=== PATIENT | female | born 1930 | race Caucasian/White ===

== ENCOUNTER 2018-04-28 09:48 | Inpatient (IN) ==
[2018-04-28] MEDS ORDERED: Morphine Inj 4 MG/ML Vial IV.PUSH ONE (10:12)
[2018-04-28 10:52] LABS: Baso # (Auto) 0.1 th/mm3 (0.0-0.2); Baso % (Auto) 0.5 % (0.0-2.0); Eos # (Auto) 0.1 th/mm3 (0.0-0.4); Eos % (Auto) 0.7 % (0.0-4.0); Hematocrit 34.2 % (35.0-46.0); Hemoglobin 11.1 gm/dL (11.6-15.3); Lymph # (Auto) 0.9 th/mm3 (1.0-4.8); Lymph % (Auto) 7.4 % (9.0-44.0); Mean Corpuscular HGB Conc 32.4 % (32.0-36.0); Mean Corpuscular Volume 83.3 fL (80.0-100.0); Mean Platelet Volume 6.8 fL (7.0-11.0); Mono # (Auto) 0.7 th/mm3 (0.0-0.9); Mono % (Auto) 5.8 % (0.0-8.0); Neut # (Auto) 10.9 th/mm3 (1.8-7.7); Neut % (Auto) 85.6 % (16.0-70.0); Platelet Count 223 th/mm3 (150-450); Red Blood Count 4.11 mil/mm3 (4.00-5.30); Red Cell Distribution Width 16.2 % (11.6-17.2); White Blood Count 12.7 th/mm3 (4.0-11.0)
[2018-04-28 11:05] LABS: Activated Partial Thrombo Time 22.4 sec (24.3-30.1); Prothrombin Time 9.9 sec (9.8-11.6)
[2018-04-28 11:11] LABS: Calcium 8.7 mg/dL (8.5-10.1); Carbon Dioxide 30.2 meq/L (21.0-32.0); Potassium 4.3 meq/L (3.5-5.1)
[2018-04-28 11:26] LABS: Baso # (Auto) 0.1 th/mm3 (0.0-0.2); Baso % (Auto) 0.7 % (0.0-2.0); Eos # (Auto) 0.1 th/mm3 (0.0-0.4); Eos % (Auto) 0.6 % (0.0-4.0); Hemoglobin 11.1 gm/dL (11.6-15.3); Lymph % (Auto) 7.8 % (9.0-44.0); Mean Corpuscular HGB Conc 32.8 % (32.0-36.0); Mean Corpuscular Hemoglobin 27.4 pg (27.0-34.0); Mean Corpuscular Volume 83.7 fL (80.0-100.0); Mono # (Auto) 0.7 th/mm3 (0.0-0.9); Mono % (Auto) 5.4 % (0.0-8.0); Neut # (Auto) 10.6 th/mm3 (1.8-7.7); Neut % (Auto) 85.5 % (16.0-70.0); Platelet Count 210 th/mm3 (150-450); Red Blood Count 4.07 mil/mm3 (4.00-5.30); Red Cell Distribution Width 15.9 % (11.6-17.2); White Blood Count 12.4 th/mm3 (4.0-11.0)
--- NOTE | 2018-04-28 11:47 | XR ---
EXAM DATE: 04/28/2018 11:44 AM EDT AGE/SEX: 87 years / Female INDICATIONS: Fell today at home CLINICAL DATA: This is the patient's initial encounter. Patient reports that signs and symptoms have been present for 1 day and indicates a pain score of 7/10. MEDICAL/SURGICAL HISTORY: . dementia . hysterectomy and prolapse bladder surgery COMPARISON: No prior exams available for comparison. FINDINGS: A single AP view of the chest demonstrates the lungs to be symmetrically aerated without evidence of mass, infiltrate or effusion. There is some platelike atelectasis in the left lung base. The cardiome diastinal contours are unremarkable. Osseous structures are intact. CONCLUSION: 1. Platelike atelectasis in left lung base. 2. Otherwise, no focal or acute intrathoracic disease. Electronically signed by: Hitesh Lopez MD 04/28/2018 11:46 AM EDT
[2018-04-28 11:49] LABS: Bilirubin,Urine Negative (Negative); Clarity,Urine Clear (Clear); Color,Urine Yellow (Yellw/Straw); Glucose,Urine (UA) Negative (Negative); Leukocyte Esterase,Urine Negative (Negative); Mucus,Urine Few /lpf (Occasional); Nitrite,Urine Negative (Negative); Squamous Epithelial Cell,Urine <1 /hpf (0-5)
--- NOTE | 2018-04-28 11:59 | XR ---
EXAM DATE: 04/28/2018 11:49 AM EDT AGE/SEX: 87 years / Female INDICATIONS: Fell today at home CLINICAL DATA: This is the patient's initial encounter. Patient reports that signs and symptoms have been present for 1 day and indicates a pain score of 1/10. MEDICAL/SURGICAL HISTORY: . dementia . hysterectomy and prolapse bladder surgery COMPARISON: No prior exams available for comparison. FINDINGS: Bony structures are intact and in normal alignment. Osseous density is normal. Soft tissues are unre markable. No radiopaque foreign bodies seen. CONCLUSION: No acute fracture or joint dislocation. Electronically signed by: Hitesh Lopez MD 04/28/2018 11:58 AM EDT
--- NOTE | 2018-04-28 12:00 | XR ---
EXAM DATE: 04/28/2018 11:47 AM EDT AGE/SEX: 87 years / Female INDICATIONS: Fell today at home CLINICAL DATA: This is the patient's initial encounter. Patient reports that signs and symptoms have been present for 1 day and indicates a pain score of 9/10. MEDICAL/SURGICAL HISTORY: . dementia . hysterectomy and prolapse bladder surgery COMPARISON: No prior exams available for comparison. FINDINGS: There is an angulated comminuted fracture through the trochanteric region of the proximal left femur. The femoral head remains within the acetabulum. The bony structures of the pelvis are grossly intact . CONCLUSION: Angulated comminuted fracture through the trochanteric region of the proximal left femur. Electronically signed by: Hitesh Lopez MD 04/28/2018 11:59 AM EDT
--- NOTE | 2018-04-28 12:47 | ED ---
HPI General Chief Complaint: Fall Stated Complaint: Fall Time Seen by Provider: 04/28/18 09:59 Source: patient and EMS Mode of arrival: ambulatory Limitations: no limitations History of Present Illness HPI Narrative: The patient is an 87-year-old female with history of diabetes type 2 and mild dementia presenting after mechanical fall today resulting in 2 left hip injury. The patient has been unable to tolerate any weight on the affected leg. Dr. Ferrera is her orthopedic surgeon as per family. MD complaint: fall Onset (ago): minute(s) (30) Fall from: standing Fall witnessed: yes, by family Place fall occurred: home Loss of consciousness: none Symptoms prior to fall: none Context: tripped/slipped Location of injury: other Related Data Home Medications Medication Instructions Recorded Confirmed L. gasseri-B. bifidum-B longum 1 cap PO DAILY 04/28/18 04/28/18 [[employer]Watch] acetaminophen [Tylenol Arthritis 650 mg PO BID 04/28/18 04/28/18 Pain] aspirin [Lima Chewable Aspirin] 81 mg PO 3XW 04/28/18 04/28/18 cholecalciferol (vitamin D3) 1,000 unit PO DAILY 04/28/18 04/28/18 [Vitamin D3] cyanocobalamin (vitamin B-12) 1,000 mcg PO 2XWEEK 04/28/18 04/28/18 [Vitamin B-12] donepezil 5 mg PO DAILY 04/28/18 04/28/18 latanoprost 1 drp EACH EYE HS 04/28/18 04/28/18 losartan 25 mg PO DAILY 04/28/18 04/28/18 memantine 10 mg PO BID 04/28/18 04/28/18 metformin 750 mg PO DAILY 04/28/18 04/28/18 ynclboic-nzsz-CI-calcium-mins 1 tab PO DAILY 04/28/18 04/28/18 [Women's One Daily] simvastatin [Zocor] 40 mg PO DAILY 04/28/18 04/28/18 Allergies Allergy/AdvReac Type Severity Reaction Status Date / Time No Known Allergies Allergy Verified 04/28/18 10:12 Review of Systems ROS: all other systems reviewed are negative [facility] Medical History Medical History Cataract (Acute) Dementia (Acute) Diabetes (Acute) H/O: hysterectomy (Acute) High cholesterol (Acute) Surgical History Surgical History History of bladder surgery (Acute) Family History Family History Other Hypertension Social History Social History Substance History: No History of Abuse Second Hand Smoke Exposure: No Smoking Status: Never smoker How Often Do You Have a Drink Containing Alcohol: Never Recent Travel in [facility] within the Last 8 Weeks: No Recent Out of Country Travel within the Last 8 Weeks: No Immunization History Tetanus Immunization: Unsure Hx Influenza Vaccine This Season: Yes Exam Narrative Exam Narrative: GENERAL: Alert and oriented in no distress SKIN: Focused skin assessment warm/dry. HEAD: Atraumatic. Normocephalic. EYES: Pupils equal and round. No scleral icterus. No injection or drainage. ENT: No nasal bleeding or discharge. Mucous membranes pink and moist. NECK: Trachea midline. No JVD. CARDIOVASCULAR: Regular rate and rhythm. No murmur appreciated. RESPIRATORY: No accessory muscle use. Clear to auscultation. Breath sounds equal bilaterally. GASTROINTESTINAL: Abdomen soft, non-tender, nondistended. Hepatic and splenic margins not palpable. MUSCULOSKELETAL: Left left lower extremity externally rotated and shortened comparison to the right. Tenderness over the left hip area. Distal pulses intact. Sensation intact. Left upper extremity with skin avulsion. NEUROLOGICAL: Awake and alert. No obvious cranial nerve deficits. Motor grossly within normal limits. Normal speech. PSYCHIATRIC: Appropriate mood and affect; insight and judgment normal. Course Hospital Course: Analgesia was provided. Also was consulted and saw the patient in the ED. She is to be scheduled for the OR later tonight or tomorrow based on opening. Neurovascularly intact. Reevaluation(s) Reevaluation #1: Patient in no distress. We will give narcotics. Neurovascularly intact. Also was consulted. Time: 16:27 Initial Documented Vital Signs Temperature 98 F 04/28/18 10:00 Pulse Rate 73 04/28/18 10:00 Respiratory Rate 18 04/28/18 10:00 Blood Pressure 132/69 04/28/18 10:00 Pulse Oximetry 98 09/04/18 10:00 Last Documented Vital Signs Temperature 98.9 F 04/28/18 16:00 Pulse Rate 69 04/28/18 16:00 Respiratory Rate 18 04/28/18 16:00 Blood Pressure 131/63 04/28/18 16:00 Pulse Oximetry 94 L 04/28/18 16:00 Medical Decision Making MDM Narrative Medical decision making narrative: Patient with a mechanical fall resulting to a left comminuted intertrochanteric fracture of the left femur. Also consulted will take the patient to the OR. Was a mechanical fall. There was no head injury or LOC. She is not on blood thinners. Medical Screen Exam Complete: Yes Emergency Medical Condition: Yes Medical Records Medical records reviewed: Yes I reviewed the patient's medical records. Lab Data Result diagrams: 04/28/18 11:12 04/28/18 10:35 Lab Results 04/28/18 04/28/18 04/28/18 Range/Units 10:35 10:35 10:35 WBC 12.7 H (4.0-11.0) th/mm3 RBC 4.11 (4.00-5.30) mil/mm3 Hgb 11.1 L (11.6-15.3) gm/dL Hct 34.2 L (35.0-46.0) % MCV 83.3 (80.0-100.0) fL MCH 27.0 (27.0-34.0) pg MCHC 32.4 (32.0-36.0) % RDW 16.2 (11.6-17.2) % Plt Count 223 (150-450) th/mm3 MPV 6.8 L (7.0-11.0) fL Neut % (Auto) 85.6 H (16.0-70.0) % Lymph % (Auto) 7.4 L (9.0-44.0) % [place] % (Auto) 5.8 (0.0-8.0) % Eos % (Auto) 0.7 (0.0-4.0) % Baso % (Auto) 0.5 (0.0-2.0) % Neut # (Auto) 10.9 H (1.8-7.7) th/mm3 Lymph # (Auto) 0.9 L (1.0-4.8) th/mm3 [place] # (Auto) 0.7 (0.0-0.9) th/mm3 Eos # (Auto) 0.1 (0.0-0.4) th/mm3 Baso # (Auto) 0.1 (0.0-0.2) th/mm3 WBC Differential . Differential Comment Auto diff final PT 9.9 (9.8-11.6) sec INR 1.0 Ratio APTT 22.4 L (24.3-30.1) sec Sodium 146 H (136-145) meq/L Potassium 4.3 (3.5-5.1) meq/L Chloride 108 H (98-107) meq/L Carbon Dioxide 30.2 (21.0-32.0) meq/L Anion Gap 8 (5-15) meq/L BUN 19 H (7-18) mg/dL Creatinine 0.95 (0.50-1.00) mg/dL Estimated GFR 55 L (>89) mL/min Random Glucose 123 H (74-106) mg/dL Calcium 8.7 (8.5-10.1) mg/dL Urine Color (Yellw/Straw) Urine Clarity (Clear) Urine pH (5.0-8.5) Ur Specific [place] (1.002-1.035) Urine Protein (Neg-Trace) mg/dL Urine Glucose (UA) (Negative) mg/dL Urine Ketones (Negative) mg/dL Urine Occult Blood (Negative) Urine Nitrate (Negative) Urine Bilirubin (Negative) Urine Urobilinogen (Less than 2) mg/dL Ur Leukocyte Esterase (Negative) Urine RBC (0-3) /hpf Urine WBC (0-5) /hpf Ur Squamous Epith Cells (0-5) /hpf Urine Mucus (Occasional) /lpf Micro UA Comment Ur Microscopic Review Urine Culture Comments 04/28/18 04/28/18 Range/Units 11:12 11:12 WBC 12.4 H (4.0-11.0) th/mm3 RBC 4.07 (4.00-5.30) mil/mm3 Hgb 11.1 L (11.6-15.3) gm/dL Hct 34.0 L (35.0-46.0) % MCV 83.7 (80.0-100.0) fL MCH 27.4 (27.0-34.0) pg MCHC 32.8 (32.0-36.0) % RDW 15.9 (11.6-17.2) % Plt Count 210 (150-450) th/mm3 MPV 7.0 (7.0-11.0) fL Neut % (Auto) 85.5 H (16.0-70.0) % Lymph % (Auto) 7.8 L (9.0-44.0) % [place] % (Auto) 5.4 (0.0-8.0) % Eos % (Auto) 0.6 (0.0-4.0) % Baso % (Auto) 0.7 (0.0-2.0) % Neut # (Auto) 10.6 H (1.8-7.7) th/mm3 Lymph # (Auto) 1.0 (1.0-4.8) th/mm3 [place] # (Auto) 0.7 (0.0-0.9) th/mm3 Eos # (Auto) 0.1 (0.0-0.4) th/mm3 Baso # (Auto) 0.1 (0.0-0.2) th/mm3 WBC Differential . Differential Comment Auto diff final PT (9.8-11.6) sec INR Ratio APTT (24.3-30.1) sec Sodium (136-145) meq/L Potassium (3.5-5.1) meq/L Chloride (98-107) meq/L Carbon Dioxide (21.0-32.0) meq/L Anion Gap (5-15) meq/L BUN (7-18) mg/dL Creatinine (0.50-1.00) mg/dL Estimated GFR (>89) mL/min Random Glucose (74-106) mg/dL Calcium (8.5-10.1) mg/dL Urine Color Yellow (Yellw/Straw) Urine Clarity Clear (Clear) Urine pH 6.0 (5.0-8.5) Ur Specific [place] 1.020 (1.002-1.035) Urine Protein Negative (Neg-Trace) mg/dL Urine Glucose (UA) Negative (Negative) mg/dL Urine Ketones Negative (Negative) mg/dL Urine Occult Blood Negative (Negative) Urine Nitrate Negative (Negative) Urine Bilirubin Negative (Negative) Urine Urobilinogen Less than 2 (Less than 2) mg/dL Ur Leukocyte Esterase Negative (Negative) Urine RBC 1 (0-3) /hpf Urine WBC 1 (0-5) /hpf Ur Squamous Epith Cells <1 (0-5) /hpf Urine Mucus Few H (Occasional) /lpf Micro UA Comment Culture not ind Ur Microscopic Review Not Reportable Urine Culture Comments Culture not ind Imaging Data Radiologist's impression: Chest X-Ray 04/28/18 10:14 CONCLUSION: 1. Platelike atelectasis in left lung base. 2. Otherwise, no focal or acute intrathoracic disease. Hip X-Ray 04/28/18 10:14 CONCLUSION: Angulated comminuted fracture through the trochanteric region of the proximal left femur. Humerus X-Ray 04/28/18 10:14 CONCLUSION: No acute fracture or joint dislocation. Discharge Plan Discharge Disposition Patient Disposition: 30 Still Patient Discharge Condition Condition: Stable Discharge Details Diagnosis: Closed intertrochanteric fracture of left femur Physicians Team ED Provider: Prudencio Hendricks Primary Care Provider: NON STAFF,PROVIDER Attending Provider: Rojelio Tucker Discharge Interventions Interventions: ED Discharge Assessment Last Done: 04/28/18 16:49 Vital Signs Last Done: 04/28/18 14:00 Status ED Status: Left Department Discharge Information Discharge Date/Time: 04/28/18 16:50
[2018-04-28] MEDS ORDERED: Sodium Chlor 0.9% Inj 40 ML, Bupivacaine Liposo PF 1.3% Inj 20 ML P-ARTICULR SCH ×2 (13:45)
[2018-04-28] MEDS ORDERED: Chlorhexidine 4% Topical 120 APPLIC/120 ML Bottle TOPICAL SCH (13:45)
--- NOTE | 2018-04-28 13:49 | P.CONOP ---
[facility] Orthopedics Consult Note - [facility] Consult date: 04/28/18 Consult reason: fracture Chief complaint: Fall Narrative: This 87-year-old woman has been known to me bilateral osteoarthritis in both knees. This morning, while going from one room to another, she reached out her doorknob and fell directly onto her left side. There was no loss of consciousness. This was on 1 level. She injured her left hip and her left upper arm. Her last oral intake was last night. [facility] - History History Provided By: Patient, Family Member, [employer] Machine Operator / EMT - Medical History Medical History: Medical History (Last Updated 04/28/18 @ 11:08 by [employer]) Cataract Dementia Diabetes H/O: hysterectomy High cholesterol - Surgical History Surgical History: Surgical History (Last Reviewed 04/28/18 @ 11:08 by [employer]) History of bladder surgery - Tobacco History Second Hand Smoke Exposure: No Tobacco Use In Past 30 Days: No Smoking Status: Never smoker - Alcohol History How Often Do You Have a Drink Containing Alcohol: Never - Substance Use History Substance History: No History of Abuse - Travel History Recent Travel in the [facility] Within the Last 8 Weeks: No Recent Travel Out of the Country Within the Last 8 Weeks: No - Immunization History Tetanus Immunization: Unsure Hx Influenza Vaccine This Season: Yes Medications and Allergies Active Medications: Active Medications Chlorhexidine Gluconate (Hibiclens 4% Topical) 1 applicatio TOPICAL ONCE SYDNI Stop: 05/02/18 13:44 Sodium Chloride 40 ml/ (Bupivacaine Liposome 20 ml) 0 ml P-ARTICULR ONCE SYDNI Cefazolin Sodium/Dextrose (Ancef 2 Gm Premix Inj) 2 gm in 50 mls @ 100 mls/hr IV.SIG FLOOR MOLDER SYDNI Stop: 05/02/18 13:59 Tranexamic Acid / Sodium (Chloride) 100 mls @ 200 mls/hr IV.SIG ONCE SYDNI Stop: 04/29/18 13:59 Allergies Allergy/AdvReac Type Severity Reaction Status Date / Time No Known Allergies Allergy Verified 04/28/18 10:12 Home Medications Medication Instructions Recorded Confirmed Type L. gasseri-B. bifidum-B longum 1 cap PO DAILY 04/28/18 04/28/18 History [[employer]] acetaminophen [Tylenol Arthritis 650 mg PO BID 04/28/18 04/28/18 History Pain] aspirin [Lima Chewable Aspirin] 81 mg PO 3XW 04/28/18 04/28/18 History cholecalciferol (vitamin D3) 1,000 unit PO DAILY 04/28/18 04/28/18 History [Vitamin D3] cyanocobalamin (vitamin B-12) 1,000 mcg PO 2XWEEK 04/28/18 04/28/18 History [Vitamin B-12] donepezil 5 mg PO DAILY 04/28/18 04/28/18 History latanoprost 1 drp EACH EYE HS 04/28/18 04/28/18 History losartan 25 mg PO DAILY 04/28/18 04/28/18 History memantine 10 mg PO BID 04/28/18 04/28/18 History metformin 750 mg PO DAILY 04/28/18 04/28/18 History efyegdnj-ekck-ZS-calcium-mins 1 tab PO DAILY 04/28/18 04/28/18 History [Women's One Daily] simvastatin [Zocor] 40 mg PO DAILY 04/28/18 04/28/18 History Exam Vital signs: Vital Signs 04/28/18 10:00 04/28/18 10:37 04/28/18 10:44 Temperature 98 F Pulse Rate 73 69 68 Respiratory Rate 18 18 18 Blood Pressure 132/69 147/65 H 142/56 H Pulse Oximetry 98 100 98 04/28/18 11:46 04/28/18 12:00 Temperature Pulse Rate 62 72 Respiratory Rate 18 18 Blood Pressure 114/57 L 114/56 L Pulse Oximetry 97 97 Intake & Output 04/27/18 04/28/18 04/28/18 18:59 06:59 18:59 Weight 61.235 kg Narrative: She is resting comfortably, supine in the stretcher/bed in the emergency department. There is complaint of pain in the left extremity. - Routine Extremities Exam Comments: The left lower extremity is shortened and externally rotated. There is tenderness of the left hip. The skin is intact. Dorsalis pedis and posterior tibial pulses are intact. Neurovascular status is intact. The left upper extremity has some tenderness but she moves it relatively well. There are multiple abrasions along the lateral aspect of the upper arm. Her neurovascular status is intact. Results - Labs Result Diagrams: 04/28/18 11:12 04/28/18 10:35 Labs: Laboratory Results - last 24 hr 04/28/18 04/28/18 04/28/18 10:35 10:35 10:35 WBC 12.7 H RBC 4.11 Hgb 11.1 L Hct 34.2 L MCV 83.3 MCH 27.0 MCHC 32.4 RDW 16.2 Plt Count 223 MPV 6.8 L Neut % (Auto) 85.6 H Lymph % (Auto) 7.4 L [place] % (Auto) 5.8 Eos % (Auto) 0.7 Baso % (Auto) 0.5 Neut # (Auto) 10.9 H Lymph # (Auto) 0.9 L [place] # (Auto) 0.7 Eos # (Auto) 0.1 Baso # (Auto) 0.1 WBC Differential . Differential Comment Auto diff final PT 9.9 INR 1.0 APTT 22.4 L Sodium 146 H Potassium 4.3 Chloride 108 H Carbon Dioxide 30.2 Anion Gap 8 BUN 19 H Creatinine 0.95 Estimated GFR 55 L Random Glucose 123 H Calcium 8.7 Urine Color Urine Clarity Urine pH Ur Specific [place] Urine Protein Urine Glucose (UA) Urine Ketones Urine Occult Blood Urine Nitrate Urine Bilirubin Urine Urobilinogen Ur Leukocyte Esterase Urine RBC Urine WBC Ur Squamous Epith Cells Urine Mucus Micro UA Comment Ur Microscopic Review Urine Culture Comments 04/28/18 04/28/18 11:12 11:12 WBC 12.4 H RBC 4.07 Hgb 11.1 L Hct 34.0 L MCV 83.7 MCH 27.4 MCHC 32.8 RDW 15.9 Plt Count 210 MPV 7.0 Neut % (Auto) 85.5 H Lymph % (Auto) 7.8 L [place] % (Auto) 5.4 Eos % (Auto) 0.6 Baso % (Auto) 0.7 Neut # (Auto) 10.6 H Lymph # (Auto) 1.0 [place] # (Auto) 0.7 Eos # (Auto) 0.1 Baso # (Auto) 0.1 WBC Differential . Differential Comment Auto diff final PT INR APTT Sodium Potassium Chloride Carbon Dioxide Anion Gap BUN Creatinine Estimated GFR Random Glucose Calcium Urine Color Yellow Urine Clarity Clear Urine pH 6.0 Ur Specific [place] 1.020 Urine Protein Negative Urine Glucose (UA) Negative Urine Ketones Negative Urine Occult Blood Negative Urine Nitrate Negative Urine Bilirubin Negative Urine Urobilinogen Less than 2 Ur Leukocyte Esterase Negative Urine RBC 1 Urine WBC 1 Ur Squamous Epith Cells <1 Urine Mucus Few H Micro UA Comment Culture not ind Ur Microscopic Review Not Reportable Urine Culture Comments Culture not ind - Diagnostic results Imaging: Impressions Chest X-Ray 04/28/18 10:14 CONCLUSION: 1. Platelike atelectasis in left lung base. 2. Otherwise, no focal or acute intrathoracic disease. Hip X-Ray 04/28/18 10:14 CONCLUSION: Angulated comminuted fracture through the trochanteric region of the proximal left femur. There is a 4 part comminuted intertrochanteric fracture of the left femur. There is not a great deal of arthritis. There is demineralization consistent with postmenopausal osteoporosis. Humerus X-Ray 04/28/18 10:14 CONCLUSION: No acute fracture or joint dislocation. Assessment and Plan - Ortho Post Op Day # 0 - Problem List (1) Closed intertrochanteric fracture of left femur Code(s): S72.142A - Displaced intertrochanteric fracture of left femur, initial encounter for closed fracture Status: Acute - Assessment and Plan I have seen the patient and discussed her condition with the patient and her family. She will need surgical stabilization of this fracture. I would recommend a trochanteric nail. With the operating room and time of this to be done. I have explained the procedure as well as possible complications, expected results and expected course of treatment. I have neither implied nor guaranteed results. I would anticipate that the fracture is going to take approximately 12 weeks to heal. She will be on limited weightbearing. I would recommend nursing home facility or other type of inpatient rehabilitation for post hospital care. Thank you for the consultation and I will continue to treat the patient with you.
[2018-04-28] MEDS ORDERED: ceFAZolin 2 GM/NS 100 ML IV IV.SIG SCH ×2 (14:00)
[2018-04-28] MEDS ORDERED: TRANEXAMIC ACID IV.SIG SCH (14:00)
[2018-04-28] MEDS ORDERED: SODIUM CHLOR 0.9% IV.SIG SCH (14:00)
[2018-04-28] MEDS ORDERED: ceFAZolin 2 GM Premix Inj 2 GM/50 ML PIGGYBACK IV.SIG SCH (14:00)
[2018-04-28] MEDS ORDERED: Acetaminophen 325 MG Tablet PO PRN (14:04)
[2018-04-28] MEDS ORDERED: Morphine Sulfate Inj 2 MG/ML Vial IV.PUSH PRN (14:08)
[2018-04-28] MEDS ORDERED: Dextrose 50% in Water 50 ML Vial IV.PUSH PRN (14:09)
[2018-04-28] MEDS: Sod Chloride 0.9% Inj 1,000 ML IV.CONT SCH (15:00)
[2018-04-28] MEDS: Insulin NovoLOG Aspart Correctional Sugar Inj SQ SCH ×2 (17:00→21:24)
--- NOTE | 2018-04-28 18:37 | P.HP ---
History of Present Illness Primary Care Physician: PROVIDER NON STAFF History of Present Illness: 87-year-old female with a history of moderate dementia, type 2 diabetes presents to the ER after she awoke today and while walking out of her bedroom tripped against the door and fell onto her left knee and hip. She had immediate pain and was unable to walk. 911 was called and ER workup revealed a comminuted left trochanteric femur fracture. ER physician consulted her orthopedist Dr. Ferrera. Surgery will proceed when OR space becomes available. Patient denies any loss of consciousness, unilateral weakness, syncope. Patient denies any recent dysuria, fevers, dyspnea, cough. Inpatient Certification: I certify that the inpatient services were ordered in accordance with Medicare regulations governing the order. This includes certification that hospital inpatient services are reasonable and necessary and in the case of services not specified as inpatient-only under 42 CFR 419.22(n), that they are appropriately provided as inpatient services in accordance to with the 2-midnight benchmark under 43 CFR 412.3(e) Estimated Total Length of Stay (Days): 5 Plans for Post Hospital Care: SNF Review of Systems All other systems reviewed negative except as stated in HPI PMFSH - History History Provided By: Patient, Family Member, Rug Shampooer / EMT - Medical History Medical History: Medical History (Last Updated 04/28/18 @ 11:08 by Lisa Finley) Cataract Dementia Diabetes H/O: hysterectomy High cholesterol - Surgical History Surgical History: Surgical History (Last Reviewed 04/28/18 @ 11:08 by Lisa Finley) History of bladder surgery - Family History Family History: Family History (Last Updated 04/28/18 @ 18:34 by Jose Eduardo Tucker MD) Other Hypertension - Tobacco History Second Hand Smoke Exposure: No Tobacco Use In Past 30 Days: No Smoking Status: Never smoker - Alcohol History How Often Do You Have a Drink Containing Alcohol: Never - Substance Use History Substance History: No History of Abuse - Travel History Recent Travel in the [place] Within the Last 8 Weeks: No Recent Travel Out of the Country Within the Last 8 Weeks: No - Immunization History Tetanus Immunization: Unsure Hx Influenza Vaccine This Season: Yes Medications and Allergies Active Medications: Active Medications Acetaminophen (Tylenol) 650 mg PO Q4H PRN PRN Reason: Temp > 100.4 Al Hydroxide/Mg Hydroxide (Milk Of Magnesia Liq) 30 ml PO Q12H PRN PRN Reason: Mild Constipation Chlorhexidine Gluconate (Hibiclens 4% Topical) 1 applicatio TOPICAL ONCE [facility] Stop: 05/02/18 13:44 Sodium Chloride 40 ml/ (Bupivacaine Liposome 20 ml) 0 ml P-ARTICULR ONCE [facility] Stop: 04/29/18 13:44 Dextrose (D50w Vial) 50 ml IV.PUSH UNSCH PRN PRN Reason: PER HYPOGLYCEMIA PROTOCOL Donepezil HCl (Aricept) 5 mg PO DAILY [facility] Glucagon (Glucagon Inj) 1 mg OTHER UNSCH PRN PRN Reason: for Hypoglycemia Protocol Tranexamic Acid 612.3 mg/ (Sodium Chloride) 106.123 mls @ 200 mls/hr IV.SIG ONCE [facility] Stop: 04/29/18 13:59 Cefazolin Sodium 2,000 mg/ (Sodium Chloride) 100 mls @ 200 mls/hr IV.SIG GUIDE [place] [facility] Stop: 05/01/18 13:59 Sodium Chloride (Ns Inj) 1,000 mls @ 84 mls/hr IV.CONT .[id number] [facility] Insulin Aspart (Novolog Insulin Correctional Sugar Inj) 0 unit SQ ACHS [facility]; Protocol Latanoprost (Xalatan 0.005% Opth Drops) 1 drop EACH EYE HS [facility] Memantine (Namenda) 10 mg PO BID [facility] Morphine Sulfate (Morphine Inj) 2 mg IV.PUSH Q4H PRN PRN Reason: PAIN SCALE 6 TO 10 Ondansetron HCl (Zofran Inj) 4 mg IV.PUSH Q6H PRN PRN Reason: NAUSEA OR VOMITING Allergies Allergy/AdvReac Type Severity Reaction Status Date / Time No Known Allergies Allergy Verified 04/28/18 10:12 Home Medications Medication Instructions Recorded Confirmed Type L. gasseri-B. bifidum-B longum 1 cap PO DAILY 04/28/18 04/28/18 History [[employer]] acetaminophen [Tylenol Arthritis 650 mg PO BID 04/28/18 04/28/18 History Pain] aspirin [Lima Chewable Aspirin] 81 mg PO 3XW 04/28/18 04/28/18 History cholecalciferol (vitamin D3) 1,000 unit PO DAILY 04/28/18 04/28/18 History [Vitamin D3] cyanocobalamin (vitamin B-12) 1,000 mcg PO 2XWEEK 04/28/18 04/28/18 History [Vitamin B-12] donepezil 5 mg PO DAILY 04/28/18 04/28/18 History latanoprost 1 drp EACH EYE HS 04/28/18 04/28/18 History losartan 25 mg PO DAILY 04/28/18 04/28/18 History memantine 10 mg PO BID 04/28/18 04/28/18 History metformin 750 mg PO DAILY 04/28/18 04/28/18 History ruhpsbqx-pehj-SP-calcium-mins 1 tab PO DAILY 04/28/18 04/28/18 History [Women's One Daily] simvastatin [Zocor] 40 mg PO DAILY 04/28/18 04/28/18 History Exam Vital signs: Vital Signs 04/28/18 10:00 04/28/18 10:37 04/28/18 10:44 Temperature 98 F Pulse Rate 73 69 68 Respiratory Rate 18 18 18 Blood Pressure 132/69 147/65 H 142/56 H Pulse Oximetry 98 100 98 04/28/18 11:46 04/28/18 12:00 04/28/18 13:00 Temperature Pulse Rate 62 72 72 Respiratory Rate 18 18 18 Blood Pressure 114/57 L 114/56 L 109/51 L Pulse Oximetry 97 97 98 04/28/18 14:00 04/28/18 16:00 Temperature 98.9 F Pulse Rate 73 69 Respiratory Rate 18 18 Blood Pressure 104/53 L 131/63 Pulse Oximetry 100 94 L Intake & Output 04/27/18 04/28/18 04/28/18 18:59 06:59 18:59 Weight 61.235 kg Narrative: GENERAL: AAOx3, no acute distress, adequate nutrition, moderate dementia SKIN: Warm and dry, no rashes. HEAD: Atraumatic. Normocephalic. EYES: Pupils equal, round, reactive to light. No scleral icterus. No injection or drainage. ENT: No nasal bleeding or discharge. Moist mucous membranes. Nonerythematous oropharynx. NECK: Trachea midline. No JVD. Thyroid size within normal limits. CARDIOVASCULAR: Regular rate and rhythm. 1/6 systolic ejection murmur. RESPIRATORY: Clear and equal to auscultation bilaterally. No crackles, no wheezes. No accessory muscle use. GASTROINTESTINAL: Abdomen soft, non-tender, nondistended, normal active bowel sounds. Hepatic and splenic margins not palpable. MUSCULOSKELETAL: Extremities without clubbing or cyanosis. Lateral rotation of left foot compared to right NEUROLOGICAL: Awake and alert. No obvious cranial nerve deficits. Motor grossly within normal limits. No focal deficits. Five out of 5 muscle strength in the arms and legs. Normal speech. PSYCHIATRIC: Appropriate mood and affect; insight and judgment normal. Results - Labs CBC & Chem 7: 04/28/18 11:12 04/28/18 10:35 Labs: Laboratory Results - last 24 hr 04/28/18 04/28/18 04/28/18 10:35 10:35 10:35 WBC 12.7 H RBC 4.11 Hgb 11.1 L Hct 34.2 L MCV 83.3 MCH 27.0 MCHC 32.4 RDW 16.2 Plt Count 223 MPV 6.8 L Neut % (Auto) 85.6 H Lymph % (Auto) 7.4 L [place] % (Auto) 5.8 Eos % (Auto) 0.7 Baso % (Auto) 0.5 Neut # (Auto) 10.9 H Lymph # (Auto) 0.9 L [place] # (Auto) 0.7 Eos # (Auto) 0.1 Baso # (Auto) 0.1 WBC Differential . Differential Comment Auto diff final PT 9.9 INR 1.0 APTT 22.4 L Sodium 146 H Potassium 4.3 Chloride 108 H Carbon Dioxide 30.2 Anion Gap 8 BUN 19 H Creatinine 0.95 Estimated GFR 55 L Random Glucose 123 H Calcium 8.7 Urine Color Urine Clarity Urine pH Ur Specific [place] Urine Protein Urine Glucose (UA) Urine Ketones Urine Occult Blood Urine Nitrate Urine Bilirubin Urine Urobilinogen Ur Leukocyte Esterase Urine RBC Urine WBC Ur Squamous Epith Cells Urine Mucus Micro UA Comment Ur Microscopic Review Urine Culture Comments 04/28/18 04/28/18 11:12 11:12 WBC 12.4 H RBC 4.07 Hgb 11.1 L Hct 34.0 L MCV 83.7 MCH 27.4 MCHC 32.8 RDW 15.9 Plt Count 210 MPV 7.0 Neut % (Auto) 85.5 H Lymph % (Auto) 7.8 L [place] % (Auto) 5.4 Eos % (Auto) 0.6 Baso % (Auto) 0.7 Neut # (Auto) 10.6 H Lymph # (Auto) 1.0 [place] # (Auto) 0.7 Eos # (Auto) 0.1 Baso # (Auto) 0.1 WBC Differential . Differential Comment Auto diff final PT INR APTT Sodium Potassium Chloride Carbon Dioxide Anion Gap BUN Creatinine Estimated GFR Random Glucose Calcium Urine Color Yellow Urine Clarity Clear Urine pH 6.0 Ur Specific [place] 1.020 Urine Protein Negative Urine Glucose (UA) Negative Urine Ketones Negative Urine Occult Blood Negative Urine Nitrate Negative Urine Bilirubin Negative Urine Urobilinogen Less than 2 Ur Leukocyte Esterase Negative Urine RBC 1 Urine WBC 1 Ur Squamous Epith Cells <1 Urine Mucus Few H Micro UA Comment Culture not ind Ur Microscopic Review Not Reportable Urine Culture Comments Culture not ind - Imaging Impressions Chest X-Ray 04/28/18 10:14 CONCLUSION: 1. Platelike atelectasis in left lung base. 2. Otherwise, no focal or acute intrathoracic disease. Hip X-Ray 04/28/18 10:14 CONCLUSION: Angulated comminuted fracture through the trochanteric region of the proximal left femur. Humerus X-Ray 04/28/18 10:14 CONCLUSION: No acute fracture or joint dislocation. Caprini VTE Risk Assessment Caprini VTE Risk Assessment: Moderate/High Risk (score >= 2) Caprini Risk Assessment Model: Point Value = 1 Point Value = 2 Point Value = 3 Point Value = 5 Age 41-60 Minor surgery BMI > 25 kg/m2 Swollen legs Varicose veins or History of unexplained or recurrent spontaneous Oral contraceptives or hormone replacement Sepsis (< 1 month) Serious lung disease, including pneumonia (< 1 month) Abnormal pulmonary function Acute myocardial infarction Congestive heart failure (< 1 month) History of inflammatory bowel disease Medical patient at bed rest Age 61-74 Arthroscopic surgery Major open surgery (> 45 min) Laparoscopic surgery (> 45 min) Malignancy Confined to bed (> 72 hours) Immobilizing plaster cast Central venous access Age >= 75 History of VTE Family history of VTE Factor V Leiden Prothrombin [id number] Lupus anticoagulant Anticardiolipin antibodies Elevated serum homocysteine Heparin-induced thrombocytopenia Other congenital or acquired thrombophilia Stroke (< 1 month) Elective arthroplasty Hip, pelvis, or leg fracture Acute spinal cord injury (< 1 month) Prophylaxis Regimen: Total Risk Factor Score Risk Level Prophylaxis Regimen 0-1 Low Early ambulation 2 Moderate Order ONE of the following: *Sequential Compression Device (SCD) *Heparin 5000 units SQ BID 3-4 Higher Order ONE of the following medications: *Heparin 5000 units SQ TID *Enoxaparin/Lovenox 40 mg SQ daily (WT < 150 kg, CrCl > 30 mL/min) *Enoxaparin/Lovenox 30 mg SQ daily (WT < 150 kg, CrCl > 10-29 mL/min) *Enoxaparin/Lovenox 30 mg SQ BID (WT < 150 kg, CrCl > 30 mL/min) AND/OR *Sequential Compression Device (SCD) 5 or more Highest Order ONE of the following medications: *Heparin 5000 units SQ TID (Preferred with Epidurals) *Enoxaparin/Lovenox 40 mg SQ daily (WT < 150 kg, CrCl > 30 mL/min) *Enoxaparin/Lovenox 30 mg SQ daily (WT < 150 kg, CrCl > 10-29 mL/min) *Enoxaparin/Lovenox 30 mg SQ BID (WT < 150 kg, CrCl > 30 mL/min) AND *Sequential Compression Device (SCD) Assessment and Plan - Plan Left hip fracture X-ray shows angled comminuted fracture through the region of the proximal left trochanteric femur Patient will be kept n.p.o. for surgery Pain is adequately controlled, continue morphine Appreciate timely consult by orthopedic surgery Type 2 diabetes ACHS Accu-Cheks with sliding scale coverage if needed Diabetic diet when p.o. resumed Moderate dementia Continue home Alzheimer's medications Watch for Superficial lacerations Patient has some skin tears of her left upper arm, routine wound care DVT prophylaxis Per orthopedic surgery, patient is previously on aspirin 3 times a week, bleeding of upper arm indicates fair blood thinning
[2018-04-28] MEDS: Latanoprost 0.005% Opth Drops 2.5 ML Bottle EACH EYE SCH (21:28)
[2018-04-28] MEDS ORDERED: Chlorhexidine Gluconate 2% 1 Pack (2 Cloths) TOPICAL ONE (22:19)
[2018-04-28] MEDS ORDERED: Metoprolol Tartrate 25 MG Tablet PO ONE (22:19)
[2018-04-28] MEDS ORDERED: Sodium Chlor 0.9% Inj 500 ML IV.SIG SCH (23:00)
[2018-04-29 05:46] LABS: Calcium 8.5 mg/dL (8.5-10.1); Carbon Dioxide 28.2 meq/L (21.0-32.0); Potassium 3.8 meq/L (3.5-5.1)
[2018-04-29 05:52] LABS: Hematocrit 30.9 % (35.0-46.0); Mean Corpuscular HGB Conc 32.4 % (32.0-36.0); Mean Corpuscular Volume 83.4 fL (80.0-100.0); Mean Platelet Volume 7.5 fL (7.0-11.0); Platelet Count 186 th/mm3 (150-450); Red Cell Distribution Width 16.3 % (11.6-17.2); White Blood Count 15.4 th/mm3 (4.0-11.0)
[2018-04-29] MEDS: Insulin NovoLOG Aspart Correctional Sugar Inj SQ SCH ×4 (07:29→22:20)
[2018-04-29] MEDS: Sod Chloride 0.9% Inj 1,000 ML IV.CONT SCH ×2 (07:57→17:34)
--- NOTE | 2018-04-29 09:52 | ECG ---
Date Performed: 04/28/2018 Time Performed: 22:28:54 PTAGE: 87 years EKG: Sinus rhythm NORMAL ECG NO PREVIOUS TRACING DOCTOR: Robb French Interpretating Date/Time 04/29/2018 09:50:07
--- NOTE | 2018-04-29 11:12 | P.PN ---
Subjective Interval history: Follow-up on patient with left proximal femur fracture. Patient seen and examined. Patient is complaining of soreness to her bottom. She denies any fever or chills. She denies any complaints of left hip pain at this time. She denies any chest pain or shortness of breath. Family is at the bedside. Patient is scheduled for surgery around 130 today and is currently n.p.o. Physical Exam Vital signs: Vital Signs 04/28/18 11:46 04/28/18 12:00 04/28/18 13:00 Temperature Pulse Rate 62 72 72 Respiratory Rate 18 18 18 Blood Pressure 114/57 L 114/56 L 109/51 L Pulse Oximetry 97 97 98 04/28/18 14:00 04/28/18 16:00 04/28/18 20:00 Temperature 98.9 F 98.9 F Pulse Rate 73 69 82 Respiratory Rate 18 18 17 Blood Pressure 104/53 L 131/63 123/56 L Pulse Oximetry 100 94 L 97 04/29/18 00:00 04/29/18 00:26 04/29/18 04:00 Temperature 98.7 F 98.7 F Pulse Rate 76 70 79 Respiratory Rate 17 17 Blood Pressure 116/62 129/53 L Pulse Oximetry 98 97 04/29/18 08:00 Temperature 98.9 F Pulse Rate 91 H Respiratory Rate 16 Blood Pressure 133/60 Pulse Oximetry 94 L Intake & Output 04/28/18 04/29/18 04/29/18 18:59 06:59 18:59 Intake Total 1000 / 1000 Output Total 500 / 500 Balance 500 / 500 Weight 61.235 kg 61.235 kg Intake: IV 1000 / 1000 NS Inj 1,000 ML @ 84 mls/hr IV. 1000 / 1000 CONT .[id number] [facility] Rx#:[id number] Output: Urine 500 / 500 Other: Date of Last Bowel Movement 04/28/18 04/28/18 Weight On Admission 61.235 kg Narrative: GENERAL: Well-developed well-nourished elderly female in no acute distress. Partially oriented. Awake and alert. Family is at the bedside. SKIN: Warm and dry, no rashes. HEAD: Atraumatic. Normocephalic. EYES: Pupils equal, round, reactive to light. No scleral icterus. No injection or drainage. ENT: No nasal bleeding or discharge. Moist mucous membranes. Nonerythematous oropharynx. NECK: Trachea midline. CARDIOVASCULAR: Regular rate and rhythm. 1/6 systolic ejection murmur. RESPIRATORY: Clear and equal to auscultation bilaterally. No crackles, no wheezes. No accessory muscle use. GASTROINTESTINAL: Abdomen soft, non-tender, nondistended, normal active bowel sounds. MUSCULOSKELETAL: Extremities without clubbing or cyanosis. Left lower extremity shortened and laterally rotated. NEUROLOGICAL: Awake and alert. No obvious cranial nerve deficits. Motor grossly within normal limits. Able to move all extremities spontaneously. No focal deficits. Normal speech. PSYCHIATRIC: Calm and cooperative. Appropriate mood and affect. - Urinary Catheter Management Indwelling Urethral Catheter Cath placed during this visit: yes Reason for continuing: Other continuation reason Insertion date: 04/28/18 Insertion time: 10:45 Results - Labs CBC & Chem 7: 04/30/18 05:55 04/30/18 10:00 Laboratory Results - last 24 hr 04/28/18 04/28/18 04/28/18 10:35 10:35 11:12 WBC 12.4 H RBC 4.07 Hgb 11.1 L Hct 34.0 L MCV 83.7 MCH 27.4 MCHC 32.8 RDW 15.9 Plt Count 210 MPV 7.0 Neut % (Auto) 85.5 H Lymph % (Auto) 7.8 L Bertie % (Auto) 5.4 Eos % (Auto) 0.6 Baso % (Auto) 0.7 Neut # (Auto) 10.6 H Lymph # (Auto) 1.0 Bertie # (Auto) 0.7 Eos # (Auto) 0.1 Baso # (Auto) 0.1 WBC Differential . Differential Comment Auto diff final PT 9.9 INR 1.0 APTT 22.4 L Sodium 146 H Potassium 4.3 Chloride 108 H Carbon Dioxide 30.2 Anion Gap 8 BUN 19 H Creatinine 0.95 Estimated GFR 55 L POC Glucose Random Glucose 123 H Calcium 8.7 Urine Color Urine Clarity Urine pH Ur Specific [place] Urine Protein Urine Glucose (UA) Urine Ketones Urine Occult Blood Urine Nitrate Urine Bilirubin Urine Urobilinogen Ur Leukocyte Esterase Urine RBC Urine WBC Ur Squamous Epith Cells Urine Mucus Micro UA Comment Ur Microscopic Review Urine Culture Comments 04/28/18 04/28/18 04/28/18 11:12 19:34 21:21 WBC RBC Hgb Hct MCV MCH MCHC RDW Plt Count MPV Neut % (Auto) Lymph % (Auto) Bertie % (Auto) Eos % (Auto) Baso % (Auto) Neut # (Auto) Lymph # (Auto) Bertie # (Auto) Eos # (Auto) Baso # (Auto) WBC Differential Differential Comment PT INR APTT Sodium Potassium Chloride Carbon Dioxide Anion Gap BUN Creatinine Estimated GFR POC Glucose 119 H 118 H Random Glucose Calcium Urine Color Yellow Urine Clarity Clear Urine pH 6.0 Ur Specific [place] 1.020 Urine Protein Negative Urine Glucose (UA) Negative Urine Ketones Negative Urine Occult Blood Negative Urine Nitrate Negative Urine Bilirubin Negative Urine Urobilinogen Less than 2 Ur Leukocyte Esterase Negative Urine RBC 1 Urine WBC 1 Ur Squamous Epith Cells <1 Urine Mucus Few H Micro UA Comment Culture not ind Ur Microscopic Review Not Reportable Urine Culture Comments Culture not ind 04/29/18 04/29/18 04/29/18 05:05 05:05 07:08 WBC 15.4 H RBC 3.70 L Hgb 10.0 L Hct 30.9 L MCV 83.4 MCH 27.0 MCHC 32.4 RDW 16.3 Plt Count 186 MPV 7.5 Neut % (Auto) Lymph % (Auto) Bertie % (Auto) Eos % (Auto) Baso % (Auto) Neut # (Auto) Lymph # (Auto) Bertie # (Auto) Eos # (Auto) Baso # (Auto) WBC Differential Differential Comment PT INR APTT Sodium 145 Potassium 3.8 Chloride 106 Carbon Dioxide 28.2 Anion Gap 11 BUN 17 Creatinine 0.86 Estimated GFR 62 L POC Glucose 109 Random Glucose 110 H Calcium 8.5 Urine Color Urine Clarity Urine pH Ur Specific [place] Urine Protein Urine Glucose (UA) Urine Ketones Urine Occult Blood Urine Nitrate Urine Bilirubin Urine Urobilinogen Ur Leukocyte Esterase Urine RBC Urine WBC Ur Squamous Epith Cells Urine Mucus Micro UA Comment Ur Microscopic Review Urine Culture Comments - Imaging Impressions Chest X-Ray 04/28/18 10:14 CONCLUSION: 1. Platelike atelectasis in left lung base. 2. Otherwise, no focal or acute intrathoracic disease. Hip X-Ray 04/28/18 10:14 CONCLUSION: Angulated comminuted fracture through the trochanteric region of the proximal left femur. Humerus X-Ray 04/28/18 10:14 CONCLUSION: No acute fracture or joint dislocation. Assessment and Plan - Plan 87-year-old female with a history of dementia and diabetes who sustained a fall at home resulting in a comminuted left trochanteric femur fracture. Left hip fracture s/p mechanical fall X-ray shows angled comminuted fracture through the region of the proximal left trochanteric femur Orthopedics following, appreciate assistance. Plan for surgical intervention today. Keep n.p.o. for surgery Pain is adequately controlled, continue morphine Leukocytosis, suspect reactive Patient does not appear septic. She is afebrile. UA is negative. Chest x-ray shows platelike atelectasis left lung base. Monitor white count Monitor vitals Incentive spirometry and Acapella at the bedside, encourage use Repeat CBC in a.m. Hypertension Dyslipidemia Patient takes losartan 25 mg daily and simvastatin 40 mg daily Patient's currently normotensive off of medications Plan to resume after procedure Type 2 diabetes Will hold patient's home dose of metformin for now Continue ACHS Accu-Cheks with sliding scale coverage if needed Diabetic diet when p.o. resumed Moderate dementia Continue home Alzheimer's medications Watch for sundowning Superficial lacerations Patient has some skin tears of her left upper arm, routine wound care DVT prophylaxis Per orthopedic surgery, patient is previously on aspirin 3 times a week, bleeding of upper arm indicates fair blood thinning Code Status: FULL Discussed Condition With: patient, family, Dr. Bliss
[2018-04-29] MEDS: [UNRECOGNIZED DRUG - OTHER] TOPICAL SCH ×2 (11:54→20:45)
[2018-04-29] MEDS ORDERED: Phenylephrine/NS 1000 MCG/10ML Syringe IV.PUSH ONE (13:45)
[2018-04-29] MEDS ORDERED: Lidocaine PF 1% Inj 5 ML Syringe INFILTRATN ONE (13:45)
[2018-04-29] MEDS ORDERED: fentaNYL Citrate Inj 100 MCG/2 ML Ampul ONE (15:27)
[2018-04-29] MEDS ORDERED: Acetaminophen 325 MG Tablet PO PRN (15:30)
[2018-04-29] MEDS ORDERED: Morphine Sulfate Inj 2 MG/ML Vial IV.PUSH PRN (15:30)
[2018-04-29] MEDS ORDERED: Aluminum/Magnesium/Simethacone Susp 30 ML UDC PO PRN (15:30)
[2018-04-29] MEDS ORDERED: Post-op Orders (for Pharmacy) OTHER STA (15:30)
[2018-04-29] MEDS ORDERED: Bisacodyl 10 MG Supp RECTAL PRN (15:30)
--- NOTE | 2018-04-29 15:32 | XR ---
EXAM DATE: 04/29/2018 3:18 PM EDT AGE/SEX: 87 years / Female INDICATIONS: IM thoch nail left hip. CLINICAL DATA: This is the patient's initial encounter. Patient reports that signs and symptoms have been present for 3 days and indicates a pain score of Nonresponsive. MEDICAL/SURGICAL HISTORY: None. None. [place] [facility] [place] PELVIS 2[place]/28/2018. . FINDINGS: 4 fluoroscopic images demonstrate interval measuring romario and compression screw fixation of the left f emoral intertrochanteric fracture. There is grossly anatomic alignment of the fracture fragments. The re is anatomic alignment of the hip joint. Hardware appears intact. CONCLUSION: 1. Left hip ORIF, as above. Electronically signed by: Santiago Jacobsen MD 04/29/2018 3:31 PM EDT
--- NOTE | 2018-04-29 15:55 | P.OP ---
- Preoperative Diagnosis (1) Closed intertrochanteric fracture of left femur - Postoperative Diagnosis (1) Closed intertrochanteric fracture of left femur Date of procedure: 04/29/18 Procedure: Reduction and surgical stabilization, left hip with Synthes trochanteric nail. Anesthesia: GETA, local (Exparel) Surgeon: Mark Ferrera MD Visual Basic .Net Developer: LOREN Vee Estimated blood loss (mL): 100 Pathology: none sent Operation and Findings: Indications and findings: This 87-year-old woman fell at home striking her left hip. She was brought to the emergency department where she was found to have an intertrochanteric fracture and admitted. Physical findings showed shortening and external rotation of the lower extremity with tenderness about the hip. The skin was intact. X-rays showed a comminuted displaced intertrochanteric fracture of the femur. Operative findings: There was a comminuted displaced intertrochanteric fracture of the left femur. There was osteoporosis. Implants: The implants were Synthes. The trochanteric nail was a 12 mm x 130 degree 170 mm long implant. The helical blade was 110 mm. The distal screw was 32 mm. The patient was brought to the operating room and a general anesthetic was administered. The patient was placed onto the fracture table. The affected extremity was positioned in place in traction. The unaffected extremity was placed into the contralateral limb cradle. The hip was positioned with appropriate traction. C-arm fluoroscopy was used to determine the appropriate position. The hip was adjusted accordingly and the reduction secured. The site of the fracture was identified with x-ray. The hip was prepped with alcohol, Hibiclens and ChloraPrep and draped in the usual manner on the fracture table. An appropriate timeout procedure was carried out. An incision approximately 10-12 cm in length was made above the this was deepened through the subcutaneous tissues down to the abductor fascia which was longitudinally incised dissection was carried out down to the tip of the greater trochanter. Hemostasis was achieved throughout the procedure with electrocautery. With the help of the C-arm fluoroscopy and all was placed at the appropriate position at the trochanteric tip. This was verified in 2 planes. A guidepin was passed into the medullary canal of the femoral shaft. The position was again verified in 2 planes. The 16 mm opening reamer was used over the tip of this pin to open the medullary canal of the femur. The pin was switched to a long pin. The appropriately sized trochanteric romario was impacted over the pain and guided down into the shaft of the femur. When this was at appropriate depth and incision was made for the neck fixation. The drill guide with the obturator was passed through the fenestration in the insertion device and passed down to the lateral aspect of the femoral shaft. Adjustment was made accordingly in order to assure appropriate pin placement into the femoral head and neck. After the adjustment was completed, the pin was seated into the femoral head and neck in the appropriate position. It was sized. The reamer was set to the appropriate depth. Reaming was carried out in the usual manner. When the reamer was extracted, it was done in reverse to leave bone behind rather than extract the bone. The femoral head screw/blade was impacted into place and seated appropriately. The guidepin was removed. C-arm fluoroscopy verified appropriate position. Using the distal drill hole guide was passed and an incision made over the lateral aspect of the thigh. This was passed down to the lateral cortex of the femur. A drill hole was made across the distal end of the romario and both cortices of the femur. This was sounded and an appropriate sized screw inserted. C-arm fluoroscopy verified good position and alignment of the fracture and the implants. The wound was irrigated well with antibiotic solution. Hemostasis was achieved with electrocautery. Local anesthetic was administered throughout the wounds. Wound closure commenced with #1 Vicryl interrupted [id number] sutures for fascial structures, 2-0 Vicryl interrupted simple sutures with buried knots for the subcutaneous tissues and 4-0 Monocryl continuous subcuticular closure for the skin wounds. The wounds were dressed with Dermabond Prineo followed by dry dressing. The patient was transferred from the operating room to the postanesthesia care unit having tolerated the procedure well. Counts were correct. Specimens: None.
[2018-04-29] MEDS ORDERED: Tranexamic Acid Inj 612 MG in Sodium Chlor 0.9% Inj 100 ML IV.SIG ONE (16:55)
[2018-04-29] MEDS: Senna/Docusate Sodium 8.6/50 MG Tablet PO SCH (20:39)
[2018-04-29] MEDS: Latanoprost 0.005% Opth Drops 2.5 ML Bottle EACH EYE SCH (20:45)
[2018-04-30] MEDS: Sod Chloride 0.9% Inj 1,000 ML IV.CONT SCH (05:20)
[2018-04-30 06:15] LABS: Baso % (Auto) 0.3 % (0.0-2.0); Eos # (Auto) 0.1 th/mm3 (0.0-0.4); Eos % (Auto) 0.4 % (0.0-4.0); Hematocrit 23.4 % (35.0-46.0); Hemoglobin 7.4 gm/dL (11.6-15.3); Lymph # (Auto) 1.1 th/mm3 (1.0-4.8); Lymph % (Auto) 7.9 % (9.0-44.0); Mean Corpuscular HGB Conc 31.8 % (32.0-36.0); Mean Corpuscular Hemoglobin 26.7 pg (27.0-34.0); Mean Platelet Volume 6.9 fL (7.0-11.0); Mono # (Auto) 1.7 th/mm3 (0.0-0.9); Mono % (Auto) 11.8 % (0.0-8.0); Neut # (Auto) 11.2 th/mm3 (1.8-7.7); Neut % (Auto) 79.6 % (16.0-70.0); Platelet Count 140 th/mm3 (150-450); Red Blood Count 2.78 mil/mm3 (4.00-5.30); Red Cell Distribution Width 16.3 % (11.6-17.2); White Blood Count 14.1 th/mm3 (4.0-11.0)
--- NOTE | 2018-04-30 07:52 | P.PNOP ---
Subjective Interval history: Postop day #1 She does have some pain at the operative site, as expected. Physical therapy did not really be done because of the pain. They did attempt. Exercises were provided. Overnight, the patient became confused, picked at her dressing and removed the Dermabond Prineo from the distal to incisions. She apparently did not disrupt the incisions. The nurses cleansed this and redressed. Physical therapy reports that ambulation did not occur. Physical Exam Vital signs: Vital Signs 04/29/18 08:00 04/29/18 12:00 04/29/18 15:23 Temperature 98.9 F 98.6 F 98.2 F Pulse Rate 91 H 90 96 H Respiratory Rate 16 18 14 Blood Pressure 133/60 116/58 L 134/63 Pulse Oximetry 94 L 96 98 04/29/18 15:30 04/29/18 15:45 04/29/18 16:15 Temperature Pulse Rate 86 83 84 Respiratory Rate 16 16 17 Blood Pressure 119/60 107/62 114/57 L Pulse Oximetry 98 99 99 04/29/18 16:30 04/29/18 20:00 04/30/18 00:00 Temperature 98.2 F 98 F 99.7 F H Pulse Rate 91 H 90 92 H Respiratory Rate 16 18 18 Blood Pressure 114/58 L 119/56 L 101/53 L Pulse Oximetry 97 97 93 L 04/30/18 04:00 Temperature 99.1 F Pulse Rate 100 H Respiratory Rate 16 Blood Pressure 111/53 L Pulse Oximetry 97 Intake & Output 04/29/18 04/30/18 04/30/18 18:59 06:59 18:59 Intake Total 1128.243 / 6755.448 7613 / 1200 Output Total 350 / 350 300 / 300 Balance 778.243 / 778.243 900 / 900 Intake: IV 312.243 / 062.270 9329 / 1200 LR 1000 mL Inj 1,000 ML @ 80 1000 / 1000 mls/hr IV.CONT .[id number] SYDNI Rx# :[id number] Cyklokapron Inj 612 MG In NS 212.243 / 212.243 Inj 100 ML @ 200 mls/hr IV.SIG ONCE ONE Rx#:[id number] Ancef Inj 1,000 MG In NS Inj 200 / 200 100 ML @ 200 mls/hr IV.SIG Q6H SYDNI Rx#:[id number] Ancef Inj 2,000 MG In NS Inj 80 100 / 100 ML @ 200 mls/hr IV.SIG GAMEPLAY PROGRAMMER [facility] Rx#:[id number] Oral Anesthesia Amount 800 / 800 Output: Estimated Blood Loss 100 / 100 Urine Amount (Catheter) 250 / 250 300 / 300 Indwelling Urethral Catheter 250 / 250 300 / 300 Other: Date of Last Bowel Movement 04/28/18 04/28/18 Narrative: She is resting, comfortably in bed in a supine position. The neurovascular status is intact. The dressing currently is dry and intact. After removal of the distal dressing, the wounds are inspected and found to be intact. The Dermabond Prineo is missing from the distal 2 wounds. - Urinary Catheter Management Indwelling Urethral Catheter Cath placed during this visit: yes Reason for continuing: Other continuation reason Insertion date: 04/28/18 Insertion time: 10:45 Results - Labs CBC & Chem 7: 04/30/18 05:55 04/29/18 05:05 Laboratory Results - last 24 hr 04/29/18 04/29/18 04/29/18 07:08 11:23 17:31 WBC RBC Hgb Hct MCV MCH MCHC RDW Plt Count MPV Neut % (Auto) Lymph % (Auto) [place] % (Auto) Eos % (Auto) Baso % (Auto) Neut # (Auto) Lymph # (Auto) [place] # (Auto) Eos # (Auto) Baso # (Auto) WBC Differential Differential Comment POC Glucose 109 125 H 158 H 04/29/18 04/30/18 20:50 05:55 WBC 14.1 H RBC 2.78 L Hgb 7.4 L D Hct 23.4 L MCV 84.0 MCH 26.7 L MCHC 31.8 L RDW 16.3 Plt Count 140 L MPV 6.9 L Neut % (Auto) 79.6 H Lymph % (Auto) 7.9 L [place] % (Auto) 11.8 H Eos % (Auto) 0.4 Baso % (Auto) 0.3 Neut # (Auto) 11.2 H Lymph # (Auto) 1.1 [place] # (Auto) 1.7 H Eos # (Auto) 0.1 Baso # (Auto) 0.0 WBC Differential . Differential Comment Auto diff final POC Glucose 226 H - Imaging Impressions Hip X-Ray 04/29/18 00:00 CONCLUSION: 1. Left hip ORIF, as above. - Procedures Reduction and internal fixation with Synthes trochanteric nail on 04/29/2018. Assessment and Plan - Ortho Post Op Day # 1 - Problem List (1) Status post-operative repair of closed hip fracture Code(s): Z98.890 - Other specified postprocedural states; Z87.81 - Personal history of (healed) traumatic fracture Status: Acute Plan: Continue postop care and PT. (2) Closed intertrochanteric fracture of left femur Code(s): S72.142A - Displaced intertrochanteric fracture of left femur, initial encounter for closed fracture Status: Acute Qualifiers: Encounter type: initial encounter Fracture alignment: displaced Qualified Code(s): S72.142A - Displaced intertrochanteric fracture of left femur , initial encounter for closed fracture (3) Postoperative anemia Code(s): D64.9 - Anemia, unspecified Status: Acute Plan: Treatment of this will be deferred to the hospitalist. I would have no problem with her having a transfusion. I have discussed this possibility with the patient and family. (4) Dementia Code(s): F03.90 - Unspecified dementia without behavioral disturbance Status: Chronic - Assessment and Plan Condition: Good. Orthopedically stable. DVT prophylaxis: TEDs, aspirin, sequentials. Discharge plans: Inpatient rehab versus [facility] for rehabilitation. An appointment is to be scheduled for 1 month hence. Prescriptions: As yet to be determined; Patient is having significant pain caused by a hip fracture which will last more than 3 days. Trial of Tylenol has not helped. I believe that it is medically necessary to treat patients pain because it is affecting patients ability to participate in postoperative rehabilitation and perform activities of daily living in a comfortable and efficient manner. The patient does have postoperative anemia. I will defer the question about transfusion to the hospitalist/primary care physician. I have discussed wound care with the patient, her family, the nurse. She has removed the Dermabond Prineo from the distal to incision sites. She is cautioned to keep her hands out of her wound and dressing. Will be monitored. A repeat hemoglobin and hematocrit has been ordered for tomorrow routinely in the postoperative orders.
--- NOTE | 2018-04-30 08:09 | P.DCO ---
- Physical Therapy Physical Therapy: Gait training Hip: Hip fracture, Protocol: Left, Progress to weight bearing (50% partial weightbearing.) Left Lower Extremity Weight Bearing: Partial weight bearing 50% Left Lower Extremity Range of Motion: Active ROM - Nursing Nursing: Dressing changes (Daily until 2 weeks postoperatively) Dressing changes: Daily dressing change (Until 2 weeks postoperatively), Coverderm/Primapore Additional instructions: Do not remove the remaining Dermabond Prineo or Steri-Strips on until 2 weeks postoperatively. - Certification Need for Home Health services: I have seen patient Litzy Meng on 04/30/18. My clinical findings support the need for the requested home health care services because: Need for Home Health Services: Deconditioned with increased weakness, Limited ability to care for self, High risk of falls Homebound Certification: I certify that my clinical findings support that this patient is homebound because: Homebound Certification: Post-op weakness, Impaired cognitive ability/safety, Unsteady gait/balance, Unsafe to leave home unassisted
[2018-04-30] MEDS: Insulin NovoLOG Aspart Correctional Sugar Inj SQ SCH ×4 (08:51→21:22)
[2018-04-30] MEDS ORDERED: Sodium Chlor 0.9% Inj 250 ML IV.SIG ONE (09:00)
[2018-04-30] MEDS: Senna/Docusate Sodium 8.6/50 MG Tablet PO SCH ×2 (09:00→21:13)
[2018-04-30] MEDS: [UNRECOGNIZED DRUG - OTHER] TOPICAL SCH ×2 (09:02→21:15)
--- NOTE | 2018-04-30 09:53 | P.PN ---
Subjective Interval history: Follow-up on patient with left proximal femur fracture. Patient seen and examined. Patient s/p IMN 04/29/18. Patient had a difficult night last night, increased confusion, picked at her dressings and remove the Dermabond on part of her incision. Patient is improved this morning. She is just completed breakfast. She denies any acute medical complaints. She denies any fever or chills. She denies any dizziness. She denies any chest pain or shortness of breath. She denies any nausea or vomiting or abdominal pain. Hemoglobin is low this morning at 7.4. Family is at the bedside. Physical Exam Vital signs: Vital Signs 04/29/18 12:00 04/29/18 15:23 04/29/18 15:30 Temperature 98.6 F 98.2 F Pulse Rate 90 96 H 86 Respiratory Rate 18 14 16 Blood Pressure 116/58 L 134/63 119/60 Pulse Oximetry 96 98 98 04/29/18 15:45 04/29/18 16:15 04/29/18 16:30 Temperature 98.2 F Pulse Rate 83 84 91 H Respiratory Rate 16 17 16 Blood Pressure 107/62 114/57 L 114/58 L Pulse Oximetry 99 99 97 04/29/18 20:00 04/30/18 00:00 04/30/18 04:00 Temperature 98 F 99.7 F H 99.1 F Pulse Rate 90 92 H 100 H Respiratory Rate 18 18 16 Blood Pressure 119/56 L 101/53 L 111/53 L Pulse Oximetry 97 93 L 97 Intake & Output 04/29/18 04/30/18 04/30/18 18:59 06:59 18:59 Intake Total 1128.243 / 7139.891 8851 / 1200 Output Total 350 / 350 300 / 300 Balance 778.243 / 778.243 900 / 900 Intake: IV 312.243 / 322.971 2978 / 1200 LR 1000 mL Inj 1,000 ML @ 80 1000 / 1000 mls/hr IV.CONT .[id number] SYDNI Rx# :[id number] Cyklokapron Inj 612 MG In NS 212.243 / 212.243 Inj 100 ML @ 200 mls/hr IV.SIG ONCE ONE Rx#:[id number] Ancef Inj 1,000 MG In NS Inj 200 / 200 100 ML @ 200 mls/hr IV.SIG Q6H SYDNI Rx#:[id number] Ancef Inj 2,000 MG In NS Inj 80 100 / 100 ML @ 200 mls/hr IV.SIG BROKE BEATER MACHINE OPERATOR [facility] Rx#:[id number] Oral Anesthesia Amount 800 / 800 Output: Estimated Blood Loss 100 / 100 Urine Amount (Catheter) 250 / 250 300 / 300 Indwelling Urethral Catheter 250 / 250 300 / 300 Other: Date of Last Bowel Movement 04/28/18 04/28/18 Narrative: GENERAL: Well-developed well-nourished elderly female in no acute distress. Awake and alert. Family is at the bedside. SKIN: Warm and dry. No generalized rash. HEAD: Atraumatic. Normocephalic. EYES: Pupils equal, round, reactive to light. No scleral icterus. No injection or drainage. ENT: No nasal bleeding or discharge. Moist mucous membranes. Nonerythematous oropharynx. NECK: Trachea midline. CARDIOVASCULAR: Tachycardic. 1/6 systolic ejection murmur. RESPIRATORY: No accessory muscle use. Clear and equal to auscultation bilaterally. No crackles, no wheezes. GASTROINTESTINAL: Abdomen soft, non-tender, nondistended, normal active bowel sounds. GENITOURINARY: Vanegas in place with clear yellow urine in bag. MUSCULOSKELETAL: Extremities without clubbing or cyanosis. s/p Left hip IMN, dressing C/D/I. NV intact distal LLE. NEUROLOGICAL: Awake and alert. No obvious cranial nerve deficits. Motor grossly within normal limits. Able to move all extremities spontaneously. No focal deficits. Normal speech. PSYCHIATRIC: Calm and cooperative. Appropriate mood and affect. - Urinary Catheter Management Indwelling Urethral Catheter Cath placed during this visit: yes Reason for continuing: Other continuation reason Insertion date: 04/28/18 Insertion time: 10:45 Results - Labs CBC & Chem 7: 04/30/18 05:55 04/29/18 05:05 Laboratory Results - last 24 hr 04/29/18 04/29/18 04/29/18 11:23 17:31 20:50 WBC RBC Hgb Hct MCV MCH MCHC RDW Plt Count MPV Neut % (Auto) Lymph % (Auto) [place] % (Auto) Eos % (Auto) Baso % (Auto) Neut # (Auto) Lymph # (Auto) [place] # (Auto) Eos # (Auto) Baso # (Auto) WBC Differential Differential Comment POC Glucose 125 H 158 H 226 H 04/30/18 04/30/18 05:55 08:08 WBC 14.1 H RBC 2.78 L Hgb 7.4 L D Hct 23.4 L MCV 84.0 MCH 26.7 L MCHC 31.8 L RDW 16.3 Plt Count 140 L MPV 6.9 L Neut % (Auto) 79.6 H Lymph % (Auto) 7.9 L [place] % (Auto) 11.8 H Eos % (Auto) 0.4 Baso % (Auto) 0.3 Neut # (Auto) 11.2 H Lymph # (Auto) 1.1 [place] # (Auto) 1.7 H Eos # (Auto) 0.1 Baso # (Auto) 0.0 WBC Differential . Differential Comment Auto diff final POC Glucose 131 H - Imaging Impressions Hip X-Ray 04/29/18 00:00 CONCLUSION: 1. Left hip ORIF, as above. - Procedures Reduction and internal fixation with Synthes trochanteric nail on 04/29/2018. Assessment and Plan - Plan 87-year-old female with a history of dementia and diabetes who sustained a fall at home resulting in a comminuted left trochanteric femur fracture. Left hip fracture s/p mechanical fall X-ray shows angled comminuted fracture through the region of the proximal left trochanteric femur Orthopedics following, appreciate assistance. s/p Left IMN by Dr. Ferrera 04/29/18. F/u in one month. Partial wt bearing 50% Daily dressing changes Pain management with bowel regimen Postoperative anemia of acute blood loss Thrombocytopenia Hgb dropped from 10 to 7.4 T&C and transfuse 2u PRBCs recheck CBC in am Leukocytosis, suspect reactive Patient does not appear septic. She is afebrile. UA is negative. Chest x-ray shows platelike atelectasis left lung base. Monitor white count Monitor vitals Incentive spirometry and Acapella at the bedside, encourage use Repeat CBC in a.m. Hypertension Dyslipidemia Patient takes losartan 25 mg daily Resume home dose of simvastatin 40 mg daily Patient's currently normotensive off of medications Will hold off on resuming Losartan at this time, continue to monitor BP closely Type 2 diabetes Will hold patient's home dose of metformin for now Continue ACHS Accu-Cheks with sliding scale coverage if needed Diabetic diet Moderate dementia Continue home Alzheimer's medications Watch for sundowning Superficial lacerations Patient has some skin tears of her left upper arm, routine wound care DVT prophylaxis Per orthopedic surgery, patient was previously on aspirin 3 times a week, bleeding of upper arm indicates fair blood thinning Code Status: FULL Discussed Condition With: patient, family, Jurgen BELTRÁN, Dr. Witt Discharge Planning: Not ready for discharge. Case management assisting with ongoing discharge planning, possibly to [place] or another [facility] facility.
[2018-04-30] MEDS: Famotidine 20 MG Tablet PO SCH ×2 (10:00→21:13)
[2018-04-30 11:12] LABS: Calcium 8.2 mg/dL (8.5-10.1); Carbon Dioxide 27.6 meq/L (21.0-32.0); Potassium 3.3 meq/L (3.5-5.1)
[2018-04-30] MEDS: Multivitamin/Minerals Therapeutic Tablet PO SCH (11:27)
[2018-04-30] MEDS: Latanoprost 0.005% Opth Drops 2.5 ML Bottle EACH EYE SCH (23:29)
--- NOTE | 2018-05-01 06:45 | P.PNOP ---
Subjective Interval history: Postop day #2 She had a better night last night. She slept well and did not pick at her dressings. She had a transfusion. We are awaiting the results of this. She has been accepted to [facility] for continued rehabilitation today. Physical therapy notes are not current from yesterday. Occupational Therapy note has been reviewed. Physical Exam Vital signs: Vital Signs 04/30/18 12:55 04/30/18 13:05 04/30/18 17:07 Temperature 99 F 99.6 F 99.1 F Pulse Rate 99 H 101 H 91 H Respiratory Rate 18 16 16 Blood Pressure 97/50 L 91/54 L 109/53 L Pulse Oximetry 99 99 96 04/30/18 17:09 04/30/18 17:30 04/30/18 17:46 Temperature 99.1 F 99.1 F 99.3 F Pulse Rate 91 H 91 H 96 H Respiratory Rate 16 18 16 Blood Pressure 109/53 L 109/53 L 106/54 L Pulse Oximetry 96 96 97 04/30/18 20:00 04/30/18 21:00 05/01/18 00:00 Temperature 98 F 97.9 F Pulse Rate 91 H 91 H 91 H Respiratory Rate 18 18 Blood Pressure 108/52 L 115/59 L Pulse Oximetry 95 95 05/01/18 04:00 Temperature 97.7 F Pulse Rate 92 H Respiratory Rate 18 Blood Pressure 108/57 L Pulse Oximetry 95 Intake & Output 04/30/18 04/30/18 05/01/18 06:59 18:59 06:59 Intake Total 1200 / 1200 400 / 400 0 / 0 Output Total 300 / 300 800 / 800 Balance 900 / 900 -400 / -400 0 / 0 Intake: IV 1200 / 1200 0 / 0 LR 1000 mL Inj 1,000 ML @ 80 1000 / 1000 0 / 0 mls/hr IV.CONT .[id number] SYDNI Rx# :[id number] Ancef Inj 1,000 MG In NS Inj 200 / 200 100 ML @ 200 mls/hr IV.SIG Q6H SYDNI Rx#:[id number] Intake (Blood Product) Amt 400 / 400 0 / 0 Rbc As-3 Leukoreduced Unit 0 / 0 0 / 0 [id number] Rbc As-3 Leukoreduced Unit 400 / 400 [id number] Output: Urine Amount (Catheter) 300 / 300 800 / 800 Indwelling Urethral Catheter 300 / 300 800 / 800 Other: Date of Last Bowel Movement 04/28/18 04/28/18 Narrative: She is resting comfortably, supine in bed. The dressing is dry and intact. There is no erythema. Her neurovascular status is intact. - Urinary Catheter Management Indwelling Urethral Catheter Cath placed during this visit: yes, but has since been removed by the nurse Reason for continuing: Decision to DC catheter Insertion date: 04/28/18 Insertion time: 10:45 Removal date: 04/30/18 Removal time: 17:00 Results - Labs CBC & Chem 7: 04/30/18 05:55 04/30/18 10:00 Laboratory Results - last 24 hr 04/30/18 04/30/18 04/30/18 08:08 08:56 10:00 Sodium 143 Potassium 3.3 L Chloride 105 Carbon Dioxide 27.6 Anion Gap 10 BUN 13 Creatinine 0.87 Estimated GFR 61 L POC Glucose 131 H Random Glucose 204 H Calcium 8.2 L Blood Type A Positive Blood Type Recheck Required Antibody Screen Negative MTS Gel Crossmatch See Detail 04/30/18 04/30/18 04/30/18 11:48 16:27 21:11 Sodium Potassium Chloride Carbon Dioxide Anion Gap BUN Creatinine Estimated GFR POC Glucose 261 H 96 214 H Random Glucose Calcium Blood Type Blood Type Recheck Antibody Screen MTS Gel Crossmatch - Procedures Reduction and internal fixation with Synthes trochanteric nail on 04/29/2018. Assessment and Plan - Ortho Post Op Day # 2 - Problem List (1) Closed intertrochanteric fracture of left femur Code(s): S72.142A - Displaced intertrochanteric fracture of left femur, initial encounter for closed fracture Status: Acute Qualifiers: Encounter type: initial encounter Fracture alignment: displaced Qualified Code(s): S72.142A - Displaced intertrochanteric fracture of left femur , initial encounter for closed fracture (2) Status post-operative repair of closed hip fracture Code(s): Z98.890 - Other specified postprocedural states; Z87.81 - Personal history of (healed) traumatic fracture Status: Acute (3) Dementia Code(s): F03.90 - Unspecified dementia without behavioral disturbance Status: Chronic (4) Postoperative anemia Code(s): D64.9 - Anemia, unspecified Status: Acute Plan: She has had transfusions. We await reports of hemoglobin and hematocrit. - Assessment and Plan Condition: Good. Orthopedically stable. DVT prophylaxis: TEDs, aspirin, sequentials. Discharge plans: Inpatient rehab at [facility] (the patient has been accepted). An appointment is to be scheduled for 1 month hence. Prescriptions: As yet to be determined; Patient is having significant pain caused by a hip fracture which will last more than 3 days. Trial of Tylenol has not helped. I believe that it is medically necessary to treat patients pain because it is affecting patients ability to participate in postoperative rehabilitation and perform activities of daily living in a comfortable and efficient manner. From an orthopedic standpoint, she should be cleared to go to [facility] today.
[2018-05-01 07:05] LABS: Baso # (Auto) 0.1 th/mm3 (0.0-0.2); Baso % (Auto) 0.6 % (0.0-2.0); Eos # (Auto) 0.4 th/mm3 (0.0-0.4); Eos % (Auto) 3.4 % (0.0-4.0); Hematocrit 33.7 % (35.0-46.0); Hemoglobin 11.1 gm/dL (11.6-15.3); Lymph # (Auto) 1.5 th/mm3 (1.0-4.8); Lymph % (Auto) 12.3 % (9.0-44.0); Mean Corpuscular Hemoglobin 28.1 pg (27.0-34.0); Mean Corpuscular Volume 85.2 fL (80.0-100.0); Mean Platelet Volume 6.9 fL (7.0-11.0); Mono # (Auto) 1.3 th/mm3 (0.0-0.9); Mono % (Auto) 10.1 % (0.0-8.0); Neut # (Auto) 9.3 th/mm3 (1.8-7.7); Neut % (Auto) 73.6 % (16.0-70.0); Platelet Count 143 th/mm3 (150-450); Red Blood Count 3.96 mil/mm3 (4.00-5.30); Red Cell Distribution Width 16.9 % (11.6-17.2); White Blood Count 12.6 th/mm3 (4.0-11.0)
[2018-05-01 07:34] LABS: Calcium 7.6 mg/dL (8.5-10.1); Carbon Dioxide 30.5 meq/L (21.0-32.0); Potassium 3.4 meq/L (3.5-5.1)
[2018-05-01] MEDS: Insulin NovoLOG Aspart Correctional Sugar Inj SQ SCH (08:00)
--- NOTE | 2018-05-01 08:34 | P.DS ---
Date of admission: 04/28/18 14:17 Primary care physician: PROVIDER NON STAFF Attending physician on discharge: Krishna Tucker Anticipated date of discharge: 05/01/18 Brief History from admission: 87-year-old female with a history of moderate dementia, type 2 diabetes presents to the ER after she awoke today and while walking out of her bedroom tripped against the door and fell onto her left knee and hip. She had immediate pain and was unable to walk. 911 was called and ER workup revealed a comminuted left trochanteric femur fracture. ER physician consulted her orthopedist Dr. Ferrera. Surgery will proceed when OR space becomes available. Patient denies any loss of consciousness, unilateral weakness, syncope. Patient denies any recent dysuria, fevers, dyspnea, cough. Patient update on day of discharge: Follow-up on patient with left proximal femur fracture. Patient seen and examined. Patient s/p IMN 04/29/18. Patient is doing well. She denies any acute medical complaints. States her hip pain is well controlled. She denies any dizziness, shortness of breath, fever, chills, chest pain, nausea, vomiting or abdominal pain. DS: Diagnosis - Discharge Diagnosis (1) Closed intertrochanteric fracture of left femur Status: Acute (2) Status post-operative repair of closed hip fracture Status: Acute (3) Postoperative anemia Status: Acute (4) Hypokalemia Status: Acute (5) Dementia Status: Chronic DS: Summary Hospital Course: Patient admitted with left hip pain after she sustained mechanical fall at home resulting in a comminuted left trochanteric femur fracture. Patient underwent left intramedullary nailing by Dr. Ferrera on 04/29/2018. Patient began partial weightbearing 50% with physical therapy and daily dressing changes. Postoperatively, the patient had a drop in hemoglobin from 10-7.4 was transfused 2 units of packed red blood cells with a hemoglobin response of 11.1. Patient did have blood pressures on the lower side however she was asymptomatic. Her home medication of losartan was not resumed during her hospitalization. Additionally, patient also took metformin extended release 750 mg daily for diabetes however as this medication not available at [facility], patient was started on metformin 500 mg once a day to start. Patient was cleared from orthopedic service for discharge. Case management was consulted. Patient was evaluated by Terry and accepted for inpatient comprehensive rehabilitation. Patient is to follow-up with Dr. Ferrera in 1 month. - Time Spent with Patient Total time spent providing and/or coordinating discharge services: Greater than 30 minutes - Quality: VTE Deep Vein Thrombosis/Pulmonary Embolism Present on Admission: No Exam Vital signs: Vital Signs 04/30/18 12:55 04/30/18 13:05 04/30/18 17:07 Temperature 99 F 99.6 F 99.1 F Pulse Rate 99 H 101 H 91 H Respiratory Rate 18 16 16 Blood Pressure 97/50 L 91/54 L 109/53 L Pulse Oximetry 99 99 96 04/30/18 17:09 04/30/18 17:30 04/30/18 17:46 Temperature 99.1 F 99.1 F 99.3 F Pulse Rate 91 H 91 H 96 H Respiratory Rate 16 18 16 Blood Pressure 109/53 L 109/53 L 106/54 L Pulse Oximetry 96 96 97 04/30/18 20:00 04/30/18 21:00 05/01/18 00:00 Temperature 98 F 97.9 F Pulse Rate 91 H 91 H 91 H Respiratory Rate 18 18 Blood Pressure 108/52 L 115/59 L Pulse Oximetry 95 95 05/01/18 04:00 Temperature 97.7 F Pulse Rate 92 H Respiratory Rate 18 Blood Pressure 108/57 L Pulse Oximetry 95 Intake & Output 04/30/18 05/01/18 05/01/18 18:59 06:59 18:59 Intake Total 400 / 400 100 / 100 Output Total 800 / 800 Balance -400 / -400 100 / 100 Weight 61.235 kg Intake: IV 0 / 0 LR 1000 mL Inj 1,000 ML @ 80 0 / 0 mls/hr IV.CONT .[id number] [facility] Rx# :[id number] Oral 100 / 100 Intake (Blood Product) Amt 400 / 400 0 / 0 Rbc As-3 Leukoreduced Unit 0 / 0 0 / 0 [id number] Rbc As-3 Leukoreduced Unit 400 / 400 [id number] Output: Urine Amount (Catheter) 800 / 800 Indwelling Urethral Catheter 800 / 800 Other: # Voids 3 Date of Last Bowel Movement 04/28/18 Narrative: GENERAL: Well-developed well-nourished elderly female in no acute distress. Awake and alert, sitting up in bed eating breakfast. Family is at the bedside. SKIN: Warm and dry. No generalized rash. HEENT: Atraumatic. Normocephalic. Pupils equal, round, reactive to light. No scleral icterus. No injection or drainage. No nasal bleeding or discharge. Moist mucous membranes. Nonerythematous oropharynx. NECK: Trachea midline. CARDIOVASCULAR: Tachycardic. 1/6 systolic ejection murmur. RESPIRATORY: No accessory muscle use. Clear and equal to auscultation bilaterally. No crackles, no wheezes. GASTROINTESTINAL: Abdomen soft, non-tender, nondistended, normal active bowel sounds. MUSCULOSKELETAL: Extremities without clubbing or cyanosis. s/p Left hip IMN, dressing C/D/I. NV intact distal LLE. NEUROLOGICAL: Awake and alert. No obvious cranial nerve deficits. Motor grossly within normal limits. Able to move all extremities spontaneously. No focal deficits. Normal speech. PSYCHIATRIC: Calm and cooperative. Appropriate mood and affect. Results Procedures completed during hospitalization: Reduction and internal fixation with [employer] trochanteric nail on 04/29/2018. Labs on day of discharge: Labs from last 24 hours 05/01/18 05/01/18 04/30/18 06:36 06:36 21:11 WBC 12.6 H RBC 3.96 L Hgb 11.1 L D Hct 33.7 L MCV 85.2 MCH 28.1 MCHC 33.0 RDW 16.9 Plt Count 143 L MPV 6.9 L Neut % (Auto) 73.6 H Lymph % (Auto) 12.3 [place] % (Auto) 10.1 H Eos % (Auto) 3.4 Baso % (Auto) 0.6 Neut # (Auto) 9.3 H Lymph # (Auto) 1.5 [place] # (Auto) 1.3 H Eos # (Auto) 0.4 Baso # (Auto) 0.1 WBC Differential . Differential Comment Auto diff final Sodium 144 Potassium 3.4 L Chloride 105 Carbon Dioxide 30.5 Anion Gap 9 BUN 14 Creatinine 0.77 Estimated GFR 71 L POC Glucose 214 H Random Glucose 106 Calcium 7.6 L Blood Type Blood Type Recheck Antibody Screen MTS Gel Crossmatch 04/30/18 04/30/18 04/30/18 16:27 11:48 10:00 WBC RBC Hgb Hct MCV MCH MCHC RDW Plt Count MPV Neut % (Auto) Lymph % (Auto) [place] % (Auto) Eos % (Auto) Baso % (Auto) Neut # (Auto) Lymph # (Auto) [place] # (Auto) Eos # (Auto) Baso # (Auto) WBC Differential Differential Comment Sodium 143 Potassium 3.3 L Chloride 105 Carbon Dioxide 27.6 Anion Gap 10 BUN 13 Creatinine 0.87 Estimated GFR 61 L POC Glucose 96 261 H Random Glucose 204 H Calcium 8.2 L Blood Type Blood Type Recheck Antibody Screen MTS Gel Crossmatch 04/30/18 08:56 WBC RBC Hgb Hct MCV MCH MCHC RDW Plt Count MPV Neut % (Auto) Lymph % (Auto) [place] % (Auto) Eos % (Auto) Baso % (Auto) Neut # (Auto) Lymph # (Auto) [place] # (Auto) Eos # (Auto) Baso # (Auto) WBC Differential Differential Comment Sodium Potassium Chloride Carbon Dioxide Anion Gap BUN Creatinine Estimated GFR POC Glucose Random Glucose Calcium Blood Type A Positive Blood Type Recheck Required Antibody Screen Negative MTS Gel Crossmatch See Detail - Impressions ITS Impressions Chest X-Ray 04/28/18 10:14 CONCLUSION: 1. Platelike atelectasis in left lung base. 2. Otherwise, no focal or acute intrathoracic disease. Humerus X-Ray 04/28/18 10:14 CONCLUSION: No acute fracture or joint dislocation. Hip X-Ray 04/29/18 00:00 CONCLUSION: 1. Left hip ORIF, as above. Discharge Plan - Discharge Disposition Patient Disposition: 62 Rehab Inpatient - Discharge Condition Condition: Stable - Discharge Order Discharge Orders: Discharge Order (Routine); Ordered 05/01/18 Ordered By: Rosario Stern Orthopedic Clear for Discharge (Routine); Ordered 05/01/18 Ordered By: Mark Ferrera - Discharge Details Anticipated Discharge Date: 05/01/18 - Physicians Team Primary Care Provider: NON STAFF,PROVIDER Attending Provider: Krishna Tucker Other Providers: Mark Ferrera MD
[2018-05-01] MEDS: Famotidine 20 MG Tablet PO SCH (08:59)
[2018-05-01] MEDS: Multivitamin/Minerals Therapeutic Tablet PO SCH (08:59)
[2018-05-01] MEDS: Senna/Docusate Sodium 8.6/50 MG Tablet PO SCH (09:00)
[2018-05-01] MEDS: [UNRECOGNIZED DRUG - OTHER] TOPICAL SCH (09:00)
== END 2018-05-01 11:10 ==
LOC: NEPC 09:48 → NEDA 14:17 → N06 16:04
PROVIDERS: ADMIT Hospitalist; ATTEND Hospitalist